=== PATIENT | male | born 1990 | race Caucasian/White ===

== ENCOUNTER 2017-05-18 22:55 | Emergency (ER) | payer MEDICARE, OTHER ==
[~2017-05-18] VITALS: Ht 177.8 cm; Wt 73.5 kg
[2017-05-18] MEDS ORDERED: NKM (23:07)
[2017-05-18 23:10] VITALS: BP 122/78
[2017-05-18] MEDS ORDERED: DiphenhydrAMINE 50mg/ml Inj IVP ONE (23:30)
[2017-05-18] MEDS ORDERED: Ketorolac 30mg Inj IV ONE (23:30)
[2017-05-18] MEDS ORDERED: Metoclopramide 10mg/2ml Inj IVP ONE (23:30)
[2017-05-18 23:54] LABS: BASOPHILS % (AUTO) 1.1 % (0.0-2.0); EOSINOPHILS % (AUTO) 1.8 % (0.0-3.0); LYMPHOCYTES % (AUTO) 30.7 % (20.0-45.0); MEAN CORPUSCULAR HEMOGLOBIN 31.8 PG (27.0-31.0); MEAN CORPUSCULAR HGB CONC 34.4 G/DL (32.0-36.0); MEAN CORPUSCULAR VOLUME 93 FL (80-99); MEAN PLATELET VOLUME 7.4 FL (6.5-10.1); MONOCYTES % (AUTO) 10.9 % (1.0-10.0); NEUTROPHILS % (AUTO) 55.5 % (45.0-75.0); PLATELET COUNT 247 K/UL (150-450); RED BLOOD COUNT 5.55 M/UL (4.70-6.10); RED CELL DISTRIBUTION WIDTH 10.8 % (11.6-14.8); WHITE BLOOD COUNT 9.5 K/UL (4.8-10.8)
[2017-05-18 23:55] VITALS: BP 122/78
[2017-05-19 00:04] LABS: ALANINE AMINOTRANSFERASE 17 U/L (3-41); ALBUMIN/GLOBULIN RATIO 1.5 (1.0-2.7); ANION GAP 14 (5-15); ASPARTATE AMINO TRANSFERASE 22 U/L (5-40); CARBON DIOXIDE 25 mEQ/L (20-30); CHLORIDE 103 mEQ/L (98-107); CREATININE 1.1 mg/dL (0.7-1.2); GLOMERULAR FILTRATION RATE > 60 mL/min (>60); HEMOLYSIS 8; POTASSIUM 3.7 mEQ/L (3.4-4.9); SODIUM 142 mEQ/L (135-145); TOTAL PROTEIN 7.9 g/dL (6.6-8.7)
--- NOTE | 2017-05-19 01:32 | Emergency Room Report ---
History of Present Illness General Chief Complaint: Headache Source: Patient Present Illness HPI 26-year-old male presents ED complaining of headache. States that a few days ago he used heroin. States since that he's been having a headache. Sharp, frontal, radiating to the jaw. 03/27. Took Advil without relief. Denies any photophobia blurry vision nausea or vomiting. Denies chest pain shortness of breath. Denies neck stiffness fevers or chills. No aggravating relieving factors. Denies any other associated symptoms Allergies: Coded Allergies: No Known Allergies (Unverified , 05/18/17) Patient History Past Medical History: none Past Surgical History: none Pertinent Family History: none Social History: Reports: drug use, Denies: smoking, alcohol use Immunizations: UTD Reviewed Nursing Documentation: PMH: Agreed, PSxH: Agreed Nursing Documentation-PMH Past Medical History: No History, Except For Review of Systems All Other Systems: negative except mentioned in HPI Physical Exam Vital Signs Date Time Temp Pulse Resp B/P (MAP) Pulse Ox O2 Delivery O2 Flow Rate FiO2 05/18/17 23:02 98.4 59 17 122/78 99 Room Air Sp02 EP Interpretation: reviewed, normal General Appearance: no apparent distress, alert, GCS 15, non-toxic Head: normocephalic, atraumatic Eyes: bilateral eye normal inspection, bilateral eye PERRL ENT: hearing grossly normal, normal pharynx, no angioedema, normal voice Neck: full range of motion, supple/symm/no masses Respiratory: chest non-tender, lungs clear, normal breath sounds, speaking full sentences Cardiovascular #1: regular rate, rhythm, no edema Cardiovascular #2: 2+ carotid (R), 2+ carotid (L), 2+ radial (R), 2+ radial (L) , 2+ dorsalis pedis (R), 2+ dorsalis pedis (L) Gastrointestinal: normal bowel sounds, non tender, soft, non-distended, no guarding, no rebound Rectal: deferred Genitourinary: normal inspection, no CVA tenderness Musculoskeletal: back normal, gait/station normal, normal range of motion, non- tender Neurologic: alert, oriented x3, responsive, motor strength/tone normal, sensory intact, speech normal Psychiatric: judgement/insight normal, memory normal, no suicidal/homicidal ideation, anxious Reflexes: 3+ bicep (R), 3+ bicep (L), 3+ tricep (R), 3+ tricep (L), 3+ knee (R) , 3+ knee (L) Skin: normal color, no rash, warm/dry, well hydrated Lymphatic: no adenopathy Medical Decision Making Diagnostic Impression: Primary Impression: Headache Qualified Codes: R51 - Headache Additional Impression: Substance abuse ER Course Hospital Course 26-year-old male presents ED complaining of headache after using heroin Differential diagnoses include: tension headache, migraine, dehydration Clinical course Patient placed on stretcher. After initial history and physical I ordered labs , IV fluids, Reglan, Toradol and Benadryl. Patient told nurse that he wants his IV removed. Feels anxious. I offered patient medication for anxiety and he declined. He states he wants to remove the IV and leave. understands the risks of leaving. Patient has competency to make his own decisions. Signed AMA form. Diagnoses-headache, substance abuse Patient left AMA Last Vital Signs Date Time Temp Pulse Resp B/P (MAP) Pulse Ox O2 Delivery O2 Flow Rate FiO2 05/18/17 23:02 98.4 59 17 122/78 99 Room Air Status: unchanged Disposition: AGAINST MEDICAL ADVICE Condition: Stable Referrals: NOT CHOSEN [facility]EE/,REFERRING (PCP) MARILY NAJERA M.D. May 19, 2017 01:32
[2017-05-19] MEDS ORDERED: NAPROXEN500 M2 ORAL (13:20)
== END 2017-05-18 23:55 | disposition left against medical advice (07) ==
LOC: EMR 23:49
DX: R51 Headache (principal); F19.10 Other psychoactive substance abuse, uncomplicated
CPT/HCPCS: 36415; 80053; 85025; 96374; 96375; 99284; J1200; J1885; J2765

== ENCOUNTER 2017-05-19 12:44 | Emergency (ER) | payer MEDICARE, OTHER ==
[~2017-05-19] VITALS: Ht 177.8 cm; Wt 72.6 kg
[~2017-05-19 12:44] MED LIST: NKM
[2017-05-19] MEDS ORDERED: Ketorolac 60mg Inj IM ONE (13:15)
[2017-05-19] MEDS ORDERED: NAPROXEN500 M2 ORAL (13:20)
[2017-05-19 13:25] VITALS: BP 135/84
--- NOTE | 2017-05-19 13:27 | Emergency Room Report ---
History of Present Illness General Chief Complaint: Pain Source: Patient Present Illness HPI The patient is a 26-year-old male presenting for jaw pain and headache since yesterday. He was seen in this emergency department at approximately 1 AM today and was given IV fluids, Toradol, Benadryl, and Reglan. He states that the pain did decrease but he was anxious to to the IV and signed out AMA. He states that pain returned later this morning described as an 8/10 sharp sensation to both temples and is worse with jaw movement and touch. He states that he took heroine yesterday and was clenching his jaw and grinding his teeth. He denies any other symptoms including nausea, vomiting, fever, chills, nasal discharge, sore throat, cough, neck pain or stiffness, visual changes Allergies: Coded Allergies: No Known Allergies (Unverified , 05/18/17) Patient History Past Medical History: see triage record Pertinent Family History: none Social History: Reports: drug use Reviewed Nursing Documentation: PMH: Agreed, PSxH: Agreed Nursing Documentation-PMH Past Medical History: No History, Except For Review of Systems All Other Systems: negative except mentioned in HPI Physical Exam Vital Signs Date Time Temp Pulse Resp B/P (MAP) Pulse Ox O2 Delivery O2 Flow Rate FiO2 05/19/17 12:57 98.8 83 18 135/84 98 Room Air Sp02 EP Interpretation: reviewed, normal General Appearance: no apparent distress, alert, GCS 15, non-toxic Head: normocephalic, atraumatic Eyes: bilateral eye normal inspection, bilateral eye PERRL ENT: hearing grossly normal, normal pharynx, no angioedema, normal voice, other - TTP over bilat temporal regions Neck: full range of motion, supple/symm/no masses Respiratory: chest non-tender, lungs clear, normal breath sounds, speaking full sentences Musculoskeletal: back normal, gait/station normal, normal range of motion, non- tender Neurologic: alert, oriented x3, responsive, motor strength/tone normal, sensory intact, speech normal Psychiatric: judgement/insight normal, memory normal, mood/affect normal, no suicidal/homicidal ideation Skin: normal color, no rash, warm/dry, well hydrated Lymphatic: no adenopathy Medical Decision Making PA Attestation Dr. Pope is my supervising physician. Patient management was discussed with my supervising physician Diagnostic Impression: Primary Impression: Headache Qualified Codes: R51 - Headache ER Course The patient is a 26-year-old male presenting for headache Differential diagnoses include but not limited to Migraine, tension headache, mastoiditis, dental infection, drug abuse, meningitis, among others PE: Afebrile. NAD Head is normocephalic atraumatic. There is tenderness to palpation over bilateral temporal regions. no obvious deformity. No edema. Neck is soft and supple. Full active range of motion There is no obvious dental infection or abscess No lymphadenopathy The patient is given IM Toradol and will be discharged home. He states that he cannot take opioid medications due to him being in rehabilitation facility. ER precautions are given. Last Vital Signs Date Time Temp Pulse Resp B/P (MAP) Pulse Ox O2 Delivery O2 Flow Rate FiO2 05/19/17 12:57 98.8 83 18 135/84 98 Room Air Status: improved Disposition: HOME, SELF-CARE Condition: Improved Scripts Naproxen* (NAPROXEN*) 500 Mg Tablet 500 MG ORAL TWICE A DAY, #30 TAB Prov: LEYLA RAYMUNDO 05/19/17 Patient Instructions: Tension Headache Additional Instructions: I discussed my findings with the patient. All questions and concerns have been answered. Treatment and medication compliance have been addressed. I advised the patient that they need to follow up with PMD in 3-5 days. Return to ED if symptoms worsen, new symptoms arise, or if needed for any reason. Patient verbalized understanding of discharge instructions. LEYLA RAYMUNDO May 19, 2017 13:27
== END 2017-05-19 13:53 | disposition home or self-care (01) ==
LOC: EMR 13:18
DX: R51 Headache (principal)
CPT/HCPCS: 96372; 99283; 99284

== ENCOUNTER 2017-05-19 20:58 | Emergency (ER) | payer MEDICARE, OTHER ==
[~2017-05-19] VITALS: Ht 177.8 cm; Wt 73.5 kg
[~2017-05-19 20:58] MED LIST changes: +NAPROXEN500 M2 ORAL
--- NOTE | 2017-05-19 21:29 | Emergency Room Report ---
History of Present Illness General Chief Complaint: Pain Source: Patient Present Illness HPI Is a 26-year-old male whose been here 3 times in the last 36 hours. He presents with chief complaint of facial pain and dental pain. So complaining of headache. Onset for the last week. He pointed to his maxillary sinuses swollen. Blood work unremarkable. He was given prescription for Naprosyn which he did not fill. Denies any dental pain. No nausea no vomiting. Pain is 10 out of 10. Eating and drinking normally the Allergies: Coded Allergies: No Known Allergies (Unverified , 05/18/17) Patient History Past Medical History: see triage record, old chart reviewed Past Surgical History: none Pertinent Family History: none Social History: Reports: drug use Immunizations: other Reviewed Nursing Documentation: PMH: Agreed, PSxH: Agreed Nursing Documentation-PM Past Medical History: No Stated History Review of Systems Eye: Denies: eye pain, blurred vision ENT: Denies: ear pain, nose congestion, throat swelling Respiratory: Denies: cough, shortness of breath Cardiovascular: Denies: chest pain, palpitations Gastrointestinal: Denies: abdominal pain, diarrhea, nausea, vomiting Musculoskeletal: Denies: back pain, joint pain Skin: Denies: rash Neurological: Denies: headache, numbness Endocrine: Denies: increased thirst, increased urine Hematologic/Lymphatic: Denies: easy bruising All Other Systems: negative except mentioned in HPI Physical Exam Vital Signs Date Time Temp Pulse Resp B/P (MAP) Pulse Ox O2 Delivery O2 Flow Rate FiO2 05/19/17 21:05 98.6 71 20 152/78 98 Room Air vitals with elevated blood pressure Sp02 EP Interpretation: reviewed, normal General Appearance: well appearing, no apparent distress, alert Head: normocephalic, atraumatic Eyes: bilateral eye PERRL, bilateral eye EOMI ENT: hearing grossly normal, normal pharynx Neck: full range of motion, supple, no meningismus Respiratory: chest non-tender, lungs clear, normal breath sounds Cardiovascular #1: regular rate, rhythm, no murmur Gastrointestinal: normal bowel sounds, non tender, no mass, no organomegaly, no bruit, non-distended Musculoskeletal: back normal, gait/station normal, normal range of motion Psychiatric: anxious Skin: warm/dry Medical Decision Making Diagnostic Impression: Primary Impression: Headache Qualified Codes: R51 - Headache Additional Impression: Facial pain, acute ER Course Patient complaining of pain. I see no focal deficit. No evidence of meningitis or trauma. I do not suspect a bleed. Labs were normal I see no facial swelling. No dental abnormality. We'll discharge home. Last Vital Signs Date Time Temp Pulse Resp B/P (MAP) Pulse Ox O2 Delivery O2 Flow Rate FiO2 05/19/17 21:05 98.6 71 20 152/78 98 Room Air Status: improved Disposition: HOME, SELF-CARE Condition: Stable Patient Instructions: PAIN, Uncertain Cause (Acute) Additional Instructions: Fill your prescription for Naprosyn. Followup with your Dr. in 7 days. Return if symptom worsen. AMOS CAMARILLO M.D. May 19, 2017 21:29
[2017-05-19 21:34] VITALS: BP 152/78
== END 2017-05-19 21:34 | disposition home or self-care (01) ==
LOC: EMR 21:24
DX: R51 Headache (principal); K08.89 Other specified disorders of teeth and supporting structures
CPT/HCPCS: 99283

== ENCOUNTER 2017-06-17 15:06 | Emergency (ER) | payer MEDICARE, OTHER ==
[~2017-06-17] VITALS: Ht 177.8 cm; Wt 74.8 kg
[2017-06-17 15:21] VITALS: BP 119/71
[2017-06-17] MEDS ORDERED: NAPROXEN500 M2 ORAL (15:30)
[2017-06-17] MEDS ORDERED: FLONASE ALLERG9.9 ML NS (15:30)
[2017-06-17] MEDS ORDERED: Naproxen 500mg tab ORAL ONE (15:30)
[2017-06-17] MEDS ORDERED: NAPROSYN500 M1 ORAL (15:35)
--- NOTE | 2017-06-17 16:00 | Emergency Room Report ---
History of Present Illness General Chief Complaint: Medication Refill Source: Patient Present Illness [facility] The patient is a 27 old male presenting for 2 complaints. He states that he had a left upper dental infection which was evaluated by his dentist and was treated with antibiotics. He states that infection has been cured her pain has returned. He states that he ran out of naproxen yesterday and is asking for refill. Pain is a 5/10 dull ache to the left upper teeth and does not radiate. Worse with chewing. He states that he has an appointment to see his dentist in the next 2 weeks. He is also complaining of nasal congestion for the past 3 days. He states it is difficult to breathe out of his nose. He does admit to sneezing as well. He denies any other symptoms including fever, chills, cough, shortness of breath , rash, headache Allergies: Coded Allergies: No Known Allergies (Unverified , 05/18/17) Patient History Past Medical History: see triage record Pertinent Family History: none Reviewed Nursing Documentation: PMH: Agreed, PSxH: Agreed Review of Systems All Other Systems: negative except mentioned in HPI Physical Exam Vital Signs Date Time Temp Pulse Resp B/P (MAP) Pulse Ox O2 Delivery O2 Flow Rate FiO2 06/17/17 15:21 98.1 88 20 119/71 100 Room Air Sp02 EP Interpretation: reviewed, normal General Appearance: no apparent distress, alert, GCS 15, non-toxic Head: normocephalic, atraumatic Eyes: bilateral eye normal inspection, bilateral eye PERRL ENT: hearing grossly normal, normal pharynx, no angioedema, normal voice, uvula midline, nasal congestion, pharyngeal erythema, other - poor Dentition Neck: full range of motion, supple/symm/no masses Respiratory: chest non-tender, lungs clear, normal breath sounds, speaking full sentences Musculoskeletal: back normal, gait/station normal, normal range of motion, non- tender Neurologic: alert, oriented x3, responsive, motor strength/tone normal, sensory intact, speech normal Psychiatric: judgement/insight normal, memory normal, mood/affect normal, no suicidal/homicidal ideation Skin: normal color, no rash, warm/dry, well hydrated Lymphatic: no adenopathy Medical Decision Making PA Attestation Dr. Shukla is my supervising physician. Patient management was discussed with my supervising physician Diagnostic Impression: Primary Impression: Acute allergic rhinitis Qualified Codes: J30.9 - Allergic rhinitis, unspecified Additional Impression: Pain, dental ER Course The patient is a 27-year-old male presenting for dental pain and nasal congestion Diagnoses considered but not limited to: Dental rodney, dental abscess, gingivitis, allergic rhinitis, sinusitis, among others PE: No apparent distress. Poor dentition throughout. Multiple visible dental caries. No erythema or edema. No fluctuance No TTP over maxillary or frontal sinuses. Lungs CTA bilat. No wheezing. No accessory muscle use. Heart: RRR, no abnormal heart sounds + nasal D/C with edema. No cervical lymphad No tonsillar exudate. Uvula midline.Oropharynx non erythematous The patient is given naproxen and Flonase and needs to followup with his dentist as was discussed. ER precautions are given Last Vital Signs Date Time Temp Pulse Resp B/P (MAP) Pulse Ox O2 Delivery O2 Flow Rate FiO2 06/17/17 15:21 98.1 88 20 119/71 100 Room Air Status: improved Disposition: HOME, SELF-CARE Condition: Improved Scripts Naproxen* (NAPROSYN*) 500 Mg Tablet 500 MG ORAL TWICE A DAY, #60 TAB Prov: LEYLA RAYMUNDO P.A. 06/17/17 Fluticasone Propionate (Flonase Allergy Relief) 9.9 Ml [place].susp 1 SPRAYS NS DAILY, #10 ML Prov: TERÁNGELAANHUMBERTOY P.A. 06/17/17 Naproxen* (NAPROXEN*) 500 Mg Tablet 500 MG ORAL TWICE A WEEK, #30 TAB 0 Refills Prov: LEYLA RAYMUNDO P.A. 06/17/17 Referrals: NOT CHOSEN [facility]/MD,REFERRING (PCP) Patient Instructions: Dental Pain, Allergic Rhinitis Additional Instructions: I discussed my findings with the patient. All questions and concerns have been answered. Treatment and medication compliance have been addressed. I advised the patient that they need to follow up with PMD in 3-5 days. Return to ED if symptoms worsen, new symptoms arise, or if needed for any reason. Patient verbalized understanding of discharge instructions. The patient states that he has an appointment to see his dentist in the following weeks. LEYLA RAYMUNDO Jun 17, 2017 16:00
== END 2017-06-17 15:30 | disposition home or self-care (01) ==
LOC: EMR 15:28
DX: J30.9 Allergic rhinitis, unspecified (principal); K08.89 Other specified disorders of teeth and supporting structures
CPT/HCPCS: 99283

== ENCOUNTER 2017-07-19 13:58 | Emergency (ER) | payer MEDICARE, OTHER ==
[~2017-07-19] VITALS: Ht 177.8 cm; Wt 74.4 kg
[~2017-07-19 13:58] MED LIST changes: +FLONASE ALLERG9.9 ML NS; +NAPROSYN500 M1 ORAL
[2017-07-19 14:06] VITALS: BP 110/76
[2017-07-19] MEDS ORDERED: Naproxen 500mg tab ORAL ONE (14:30)
[2017-07-19] MEDS ORDERED: NAPROXEN500 M2 ORAL (14:38)
[2017-07-19] MEDS ORDERED: CORTISPORIN EAR10 ML RIGHT EAR (14:38)
[2017-07-19 14:45] VITALS: BP 126/78
--- NOTE | 2017-07-19 15:05 | Emergency Room Report ---
History of Present Illness General Chief Complaint: Pain Source: Patient Present Illness HPI The patient is a 27-year-old male presenting for right-sided facial pain which began yesterday. He states the pain is a 10 out of 10 sharp sensation primarily around the right ear and right face. Worse with touch. He admits to many dental infections in the past and states that he has an appointment to see a dentist in 2 days. He has been taking naproxen for pain which has been helping but has run out. He denies other symptoms including nausea, vomiting, fever, chills, change in hearing, sore throat, neck pain or stiffness Allergies: Coded Allergies: No Known Allergies (Unverified , 05/18/17) Patient History Past Medical History: see triage record Pertinent Family History: none Reviewed Nursing Documentation: PMH: Agreed, PSxH: Agreed Nursing Documentation-PMH Past Medical History: No Stated History Review of Systems All Other Systems: negative except mentioned in HPI Physical Exam Vital Signs Date Time Temp Pulse Resp B/P (MAP) Pulse Ox O2 Delivery O2 Flow Rate FiO2 07/19/17 14:06 97.5 61 14 110/76 93 Room Air Sp02 EP Interpretation: reviewed, normal General Appearance: no apparent distress, alert, GCS 15, non-toxic Head: normocephalic, atraumatic Eyes: bilateral eye normal inspection, bilateral eye PERRL ENT: hearing grossly normal, normal pharynx, no angioedema, normal voice, uvula midline, other - R EAC: erythema and TTP Neck: full range of motion, supple/symm/no masses Respiratory: chest non-tender, lungs clear, normal breath sounds, speaking full sentences Genitourinary: normal inspection, no CVA tenderness Musculoskeletal: back normal, gait/station normal, normal range of motion, non- tender Neurologic: alert, oriented x3, responsive, motor strength/tone normal, sensory intact, speech normal Psychiatric: judgement/insight normal, memory normal, mood/affect normal, no suicidal/homicidal ideation Skin: normal color, no rash, warm/dry, well hydrated Medical Decision Making PA Attestation Dr. Sainz is my supervising physician. Patient management was discussed with my supervising physician Diagnostic Impression: Primary Impression: Otitis externa of right ear Qualified Codes: H60.501 - Unspecified acute noninfective otitis externa, right ear ER Course The patient is a 27-year-old male presenting for right-sided facial pain which began yesterday Differential diagnosis include but not limited to otitis externa, otitis media, mastoiditis, sinusitis, pharyngitis Physical exam: Vitals within normal limits. No apparent distress. HEENT: R ear external auditory canal is erythematous and edematous. White discharge is noted. Tympanic membrane is intact. No bulging. There is no cervical lymphadenopathy. Poor dentition throughout Otherwise exam is unremarkable The patient will be discharged home with a prescription for Cortisporin and naproxen. ER precautions given Last Vital Signs Date Time Temp Pulse Resp B/P (MAP) Pulse Ox O2 Delivery O2 Flow Rate FiO2 07/19/17 14:06 97.5 14 110/76 93 Room Air 07/19/17 14:06 61 Status: improved Disposition: HOME, SELF-CARE Condition: Improved Scripts Naproxen* (NAPROXEN*) 500 Mg Tablet 500 MG ORAL TWICE A WEEK, #30 TAB 0 Refills Prov: LEYLA RAYMUNDO 07/19/17 Neomycin/Polymyxin B Sulf/Hc* (CORTISPORIN EAR SOLUTION*) 10 Ml Solution 4 DROP RIGHT EAR QID, #10 ML 0 Refills Prov: LEYLA RAYMUNDO 07/19/17 Patient Instructions: Otitis Externa Additional Instructions: I discussed my findings with the patient. All questions and concerns have been answered. Treatment and medication compliance have been addressed. I advised the patient that they need to follow up with PMD in 3-5 days. Return to ED if symptoms worsen, new symptoms arise, or if needed for any reason. Patient verbalized understanding of discharge instructions. Please follow up with her dentist as we discussed on 07/21/2017 LEYLA RAYMUNDO Jul 19, 2017 15:05
== END 2017-07-19 14:45 | disposition home or self-care (01) ==
LOC: EMR 14:30
DX: H60.91 Unspecified otitis externa, right ear (principal); R51 Headache
CPT/HCPCS: 99284

== ENCOUNTER 2017-08-05 10:00 | Emergency (ER) | payer MEDICARE, OTHER ==
[~2017-08-05] VITALS: Ht 177.8 cm; Wt 77.1 kg
[~2017-08-05 10:00] MED LIST changes: +CORTISPORIN EAR10 ML RIGHT EAR
[2017-08-05] MEDS ORDERED: NAPROSYN500 M1 ORAL (10:28)
[2017-08-05] MEDS ORDERED: TYLENOL COLD M1 EAC3 PO (10:28)
[2017-08-05] MEDS ORDERED: Naproxen 500mg tab ORAL ONE (10:30)
[2017-08-05 10:32] VITALS: BP 123/73
[2017-08-05 10:34] VITALS: BP 123/73
--- NOTE | 2017-08-05 14:30 | Emergency Room Report ---
History of Present Illness General Chief Complaint: Flu Like Symptoms Source: Patient Present Illness HPI 27-year-old male presents ED complaining of cough x1 day. Started yesterday. Cough is dry. Intermitted. Notes runny nose. Denies sore throat or earache. Denies fevers or chills. Denies sick contacts or recent travel. No other aggravating or leading factors. Denies any other associated symptoms Allergies: Coded Allergies: No Known Allergies (Unverified , 05/18/17) Patient History Past Medical History: none Past Surgical History: none Pertinent Family History: none Social History: Denies: smoking, alcohol use, drug use Immunizations: UTD Reviewed Nursing Documentation: PMH: Agreed, PSxH: Agreed Nursing Documentation-PMH Past Medical History: No History, Except For Review of Systems All Other Systems: negative except mentioned in HPI Physical Exam Vital Signs Date Time Temp Pulse Resp B/P (MAP) Pulse Ox O2 Delivery O2 Flow Rate FiO2 08/05/17 10:02 97.7 89 18 123/73 97 Room Air Sp02 EP Interpretation: reviewed, normal General Appearance: no apparent distress, alert, GCS 15, non-toxic Head: normocephalic Eyes: bilateral eye normal inspection, bilateral eye PERRL ENT: hearing grossly normal, normal pharynx, no angioedema, normal voice Neck: full range of motion, supple/symm/no masses Respiratory: chest non-tender, lungs clear, normal breath sounds, speaking full sentences Cardiovascular #1: normal inspection Gastrointestinal: normal inspection Rectal: deferred Genitourinary: no CVA tenderness Musculoskeletal: normal inspection Neurologic: alert, oriented x3, responsive, motor strength/tone normal, sensory intact, speech normal Psychiatric: normal inspection Skin: normal inspection Lymphatic: normal inspection Medical Decision Making Diagnostic Impression: Primary Impression: Upper respiratory infection Qualified Codes: J06.9 - Acute upper respiratory infection, unspecified ER Course Hospital Course 27-year-old male presents to ED complaining of cough, congestion Differential diagnoses include: URI, pharyngitis, otitis media, asthma Clinical course Patient placed on stretcher. After initial history, physical exam reveals a young male in no acute distress. Bilateral TM unremarkable. No pharyngeal erythema. No tonsillar exudates. No lymphadenopathy. lungs clear. abdomen soft. Clinical findings consistent with URI. Reassurance given to parents. treatment is supportive therapy Diagnosis - URI Stable and discharged home. Instructed to followup with PMD. Return to ED if symptoms recur or worsen Last Vital Signs Date Time Temp Pulse Resp B/P (MAP) Pulse Ox O2 Delivery O2 Flow Rate FiO2 08/05/17 10:42 97.7 08/05/17 10:34 97 14 123/73 97 Room Air Status: improved Disposition: HOME, SELF-CARE Condition: Stable Scripts D-Methorphan/Pe/Acetaminophen (TYLENOL COLD MULTI-SYMP CAPLET) 1 Each Tablet 1 EACH PO Q6HR, #30 TAB Prov: MARILY NAJERA M.D. 08/05/17 Naproxen* (NAPROSYN*) 500 Mg Tablet 500 MG ORAL TWICE A DAY, #30 TAB Prov: MARILY NAJERA M.D. 08/05/17 Referrals: NOT CHOSEN [facility]/,REFERRING (PCP) Patient Instructions: Upper Respiratory Infection, Pediatric, [id number] MARILY NAJERA M.D. Aug 05, 2017 14:30
== END 2017-08-05 10:37 | disposition home or self-care (01) ==
LOC: EMR 10:10
DX: J06.9 Acute upper respiratory infection, unspecified (principal)
CPT/HCPCS: 99283